=== PATIENT | female | born 1960 | race Caucasian/White ===

== ENCOUNTER → 2024-03-08 | Outpatient (CLI) | payer OTHER, SELFPAY ==
--- NOTE | 2024-03-08 09:30 | XR_ITS ---
Examination: Screening digital mammography, bilateral Computer aided detection 3-D breast Tomosynthesis, bilateral Date and time of exam: March 08, 2024 0931 hours Compared to mammograms dating to October 05, 2013 Indication: Screening Technique: Nonmagnified MLO, CC views of the breasts to been obtained, reconstructed from 3-D Tomosynthesis images. R2 computer aided detection program utilized for evaluation of suspicious masses and/or abnormal calcifications. 3-D Tomosynthesis images obtained. Findings: The breasts are heterogeneously dense, which may obscure small masses Benign calcifications. No interval suspicious masses Impression: BI-RADS category II: Benign Findings. Recommend 1 year follow-up mammogram.
== END | disposition home or self-care (01) ==
LOC: CDIM 09:10
PROVIDERS: PCP Family Medicine; Referring Provider Specialist; Visit Provider Specialist
DX: Z12.31 Encounter for screening mammogram for malignant neoplasm of breast (principal); R92.323 Mammographic fibroglandular density, bilateral breasts; R92.1 Mammographic calcification found on diagnostic imaging of breast
CPT/HCPCS: 77063; 77067

== ENCOUNTER 2024-04-17 16:08 | Emergency (ER) | payer OTHER, SELFPAY ==
[2024-04-17 16:10] VITALS: BMI 20.2
[2024-04-17 16:31] VITALS: BP 170/95; PULSE 73; RESP 18; TEMP 36.9; O2SAT 98
--- NOTE | 2024-04-17 16:37 | XR_ITS ---
Examination: Cervical spine 3 views Technique one AP lateral coned AP odontoid cervical spine 3 views Exam date and time: April 17, 2024 1558 hours INDICATIONS: Neck pain this week. FINDINGS: Straightening normal cervical lordosis No cervical fracture Minimal disc narrowing C6-C7 with posterior osteophyte formation Intact odontoid IMPRESSION: Early degenerative disc disease C6-C7
--- NOTE | 2024-04-17 16:37 | PD.EDRME ---
Rapid Medical Screening Exam RME Arrival date/time: 04/17/24 16:08 63-year-old female reports with complaints of occipital head pain that began suddenly last evening Chief Complaint: Neuro Symptoms/Deficit Time Seen by Provider: 04/17/24 16:30 Vital signs: Vital Signs Temperature 98.5 F 04/17/24 16:31 Pulse Rate 73 04/17/24 16:31 Respiratory Rate 18 04/17/24 16:31 Blood Pressure 170/95 H 04/17/24 16:31 Pulse Oximetry (%) 98 04/17/24 16:31 Oxygen Delivery Method Room Air 04/17/24 16:31
[2024-04-17 16:55] LABS: Basophils # (Auto) 0.1 Thou/mm3 (0.0-0.2); Basophils % (Auto) 1 % (0-2.5); Eosinophils # (Auto) 0.1 Thou/mm3 (0.0-0.5); Eosinophils % (Auto) 1 % (0-10); Hematocrit 40.3 % (36.0-46.0); Hemoglobin 13.5 g/dL (12.0-16.0); Immature Granulocytes % (Auto) 0 % (0-0); Immature Granulocytes Auto 0.03 Thou/mm3 (0.00-0.00); Lymphocytes # (Auto) 1.9 Thou/mm3 (1.0-4.8); Lymphocytes % (Auto) 23 % (10-50); Mean Corpuscular HGB Conc 33.5 g/dl (31.0-37.0); Mean Corpuscular Hemoglobin 30.6 pg (25.0-35.0); Mean Corpuscular Volume 91 fL (80-100); Monocytes # (Auto) 0.7 Thou/mm3 (0.0-0.8); Monocytes % (Auto) 9 % (0-12); Neutrophils # (Auto) 5.5 Thou/mm3 (1.8-7.7); Neutrophils % (Auto) 67 % (37-80); Nucleated Red Blood Cell % 0 /100 WBC (0); Platelet Count 166 Thou/mm3 (140-440); RDW Standard Deviation 46.5 fL (36.4-46.3); Red Blood Count 4.41 Miln/mm3 (4.00-5.20); White Blood Count 8.2 Thou/mm3 (3.6-11.0)
[2024-04-17 17:25] LABS: Alanine Aminotransferase 9 U/L (10-49); Albumin, Serum 4.6 gm/dL (3.4-4.8); Albumin/Globulin Ratio 1.6 (1.2-2.2); Alkaline Phosphatase 50 U/L (46-116); Anion Gap 9 (7-16); Aspartate Amino Transferase 14 U/L (0-34); BUN/Creatinine Ratio 15 Ratio (12-20); Bilirubin,Total 0.5 mg/dL (0.3-1.2); Blood Urea Nitrogen 12 mg/dL (9-23); Calcium 9.5 mg/dL (8.3-10.6); Calcium (Corrected) 9.5 mg/dL (8.5-10.1); Carbon Dioxide 24.3 mMol/L (20.0-31.0); Chloride 106 mMol/L (98-107); Creatinine (Component) 0.8 mg/dL (0.6-1.3); Estimated Creatinine Clearance 50.4 mL/min (>60); Globulin 2.8 gm/dL (2.3-3.5); Glucose 98 mg/dL (74-106); Osmolality,Calculated 277 (275-295); Sodium 139 mMol/L (136-145); Total Protein 7.4 gm/dL (5.7-8.2); eGFR > 60 See Note
--- NOTE | 2024-04-17 18:00 | PC.NURSE ---
CALLED PT FROM [facility] AND OUTSIDE. NO ANSWER
--- NOTE | 2024-04-17 18:12 | PC.NURSE ---
CALLED FROM [facility]OB[facility] AND NO ANSWER
--- NOTE | 2024-04-17 18:32 | PC.NURSE ---
CALLED FROM [facility]OB[facility] AND NO ANSWER
== END 2024-04-17 18:13 | disposition left against medical advice (07) ==
PROVIDERS: Physician Assistant; Emergency Provider Emergency Medicine
DX: R51.9 Headache, unspecified (principal); M54.2 Cervicalgia; R94.31 Abnormal electrocardiogram [ECG] [EKG]
CPT/HCPCS: 36415; 72040; 80053; 83735; 85025; 93005; 99281

== ENCOUNTER → 2024-04-26 | Outpatient (CLI) | payer OTHER, SELFPAY ==
--- NOTE | 2024-04-26 10:09 | XR_ITS ---
Examination: CT brain head without contrast. 2-D sagittal coronal reconstructions Date and time of exam:April 26, 2024 1037 hours INDICATIONS: Headaches with altered mental status beginning one week ago CTDI: vol (mGy):44.4 DLP: (mGycm):842 Technique: Multiple CT axial sections of the brain have been obtained, 5 mm slice thickness. Contrast has not been administered. 2-D sagittal, coronal reconstructions have been obtained Low dose protocols were performed. One or more of the following dose reduction techniques were used; automated exposure control, adjustment of the mA and/or KV according to patient size, use of iterative reconstruction technique. Findings: No significant ventricular enlargement. Intra-axial or extra-axial hemorrhage density is not seen. No mass effect or midline shift Basal cisterns are not remarkable. Fourth ventricle is midline. Cranial vault intact. Impression: Negative for acute hemorrhage, mass effect or midline shift If symptoms persist, consider brain MRI follow-up
== END | disposition home or self-care (01) ==
LOC: CCTX 09:59
PROVIDERS: PCP Family Medicine; Referring Provider Student in an Organized Health Care Education/Training Program; Visit Provider Student in an Organized Health Care Education/Training Program
DX: R40.4 Transient alteration of awareness (principal); R51.9 Headache, unspecified
CPT/HCPCS: 70450

== ENCOUNTER → 2024-05-30 | Outpatient (CLI) | payer OTHER, SELFPAY ==
[2024-05-30 11:33] LABS: Basophils % (Auto) 1 % (0-2.5); Eosinophils # (Auto) 0.1 Thou/mm3 (0.0-0.5); Eosinophils % (Auto) 2 % (0-10); Hematocrit 38.4 % (36.0-46.0); Hemoglobin 12.9 g/dL (12.0-16.0); Immature Granulocytes % (Auto) 1 % (0-0); Immature Granulocytes Auto 0.03 Thou/mm3 (0.00-0.00); Lymphocytes # (Auto) 1.6 Thou/mm3 (1.0-4.8); Lymphocytes % (Auto) 28 % (10-50); Mean Corpuscular HGB Conc 33.6 g/dl (31.0-37.0); Mean Corpuscular Hemoglobin 30.6 pg (25.0-35.0); Mean Corpuscular Volume 91 fL (80-100); Monocytes # (Auto) 0.5 Thou/mm3 (0.0-0.8); Monocytes % (Auto) 9 % (0-12); Neutrophils # (Auto) 3.3 Thou/mm3 (1.8-7.7); Neutrophils % (Auto) 60 % (37-80); Nucleated Red Blood Cell % 0 /100 WBC (0); Platelet Count 222 Thou/mm3 (140-440); RDW Standard Deviation 45.2 fL (36.4-46.3); Red Blood Count 4.22 Miln/mm3 (4.00-5.20); White Blood Count 5.6 Thou/mm3 (3.6-11.0)
[2024-05-30 12:01] LABS: Alanine Aminotransferase 10 U/L (10-49); Albumin, Serum 4.3 gm/dL (3.4-4.8); Albumin/Globulin Ratio 1.7 (1.2-2.2); Alkaline Phosphatase 48 U/L (46-116); Anion Gap 6 (7-16); Aspartate Amino Transferase 17 U/L (0-34); BUN/Creatinine Ratio 16 Ratio (12-20); Bilirubin,Total 0.4 mg/dL (0.3-1.2); Blood Urea Nitrogen 13 mg/dL (9-23); Calcium 9.5 mg/dL (8.3-10.6); Calcium (Corrected) 9.5 mg/dL (8.5-10.1); Carbon Dioxide 27.3 mMol/L (20.0-31.0); Cardiac Risk Estimate 2.3 RATIO (3.7-5.6); Chloride 108 mMol/L (98-107); Cholesterol 199 mg/dL (132-200); Creatinine (Component) 0.8 mg/dL (0.6-1.3); Globulin 2.5 gm/dL (2.3-3.5); Glucose 88 mg/dL (74-106); HDL Cholesterol 85 mg/dL (40-60); LDL Cholesterol,Calculated 97 mg/dL (0-130); Osmolality,Calculated 280 (275-295); Potassium 4.2 mMol/L (3.4-5.1); Sodium 141 mMol/L (136-145); Total Protein 6.8 gm/dL (5.7-8.2); Triglycerides 87 mg/dL (30-150); eGFR > 60 See Note
== END | disposition home or self-care (01) ==
LOC: COPL 10:14
PROVIDERS: PCP Family Medicine; Referring Provider Family Medicine; Visit Provider Family Medicine
DX: M81.8 Other osteoporosis without current pathological fracture (principal)
CPT/HCPCS: 36415; 80053; 80061; 82306; 85025

== ENCOUNTER → 2024-11-03 | Outpatient (CLI) | payer OTHER, MEDICAID, SELFPAY ==
--- NOTE | 2024-11-03 08:25 | XR_ITS ---
Examination: Duplex scan of the lower extremity, unilateral left Date and time of exam: November 03, 2024 0850 hours INDICATIONS: Left leg swelling and pain beginning one week ago Technique: Duplex scan of the extremity veins using B-mode/grayscale imaging and Doppler spectral analysis and color flow Attention is directed to internal echogenicity, compression and augmentation involving these veins, color flow assessment, spectral analysis Findings: Major deep venous structures in the extremity demonstrate normal course and caliber. There is no evidence of deep vein thrombosis. Normal color flow and spectral analysis 2.8 cm left popliteal cyst Impression: Negative for DVT..
[2024-11-03 10:03] LABS: Basophils # (Auto) 0.0 Thou/mm3 (0.0-0.2); Basophils % (Auto) 1 % (0-2.5); Eosinophils # (Auto) 0.1 Thou/mm3 (0.0-0.5); Eosinophils % (Auto) 2 % (0-10); Hematocrit 41.8 % (36.0-46.0); Hemoglobin 14.0 g/dL (12.0-16.0); Immature Granulocytes Auto 0.02 Thou/mm3 (0.00-0.00); Lymphocytes # (Auto) 1.6 Thou/mm3 (1.0-4.8); Lymphocytes % (Auto) 22 % (10-50); Mean Corpuscular HGB Conc 33.5 g/dl (31.0-37.0); Mean Corpuscular Hemoglobin 31.1 pg (25.0-35.0); Mean Corpuscular Volume 93 fL (80-100); Monocytes # (Auto) 0.5 Thou/mm3 (0.0-0.8); Monocytes % (Auto) 7 % (0-12); Neutrophils # (Auto) 5.1 Thou/mm3 (1.8-7.7); Neutrophils % (Auto) 68 % (37-80); Nucleated Red Blood Cell # 0.00 Thou/mm3 (0.00-0.00); Nucleated Red Blood Cell % 0 /100 WBC (0); Platelet Count 197 Thou/mm3 (140-440); RDW Standard Deviation 46.2 fL (36.4-46.3); Red Blood Count 4.50 Miln/mm3 (4.00-5.20); White Blood Count 7.4 Thou/mm3 (3.6-11.0)
[2024-11-03 10:14] LABS: Glucose Estimated Average 117 mg/dL (80-131); Hemoglobin A1C 5.7 % Hgb (4.8-6.0)
[2024-11-03 10:21] LABS: T4 (Thyroxine) 5.6 mcg/dL (4.5-10.9)
[2024-11-03 10:25] LABS: B-Type Natriuretic Peptide 66 pg/mL (0-100)
[2024-11-03 10:30] LABS: Alanine Aminotransferase 9 U/L (10-49); Albumin, Serum 4.6 gm/dL (3.4-4.8); Albumin/Globulin Ratio 2.0 (1.2-2.2); Alkaline Phosphatase 52 U/L (46-116); Anion Gap 8 (7-16); Aspartate Amino Transferase 20 U/L (0-34); BUN/Creatinine Ratio 16 Ratio (12-20); Bilirubin,Total 0.4 mg/dL (0.3-1.2); Blood Urea Nitrogen 14 mg/dL (9-23); Calcium 9.8 mg/dL (8.3-10.6); Calcium (Corrected) 9.8 mg/dL (8.5-10.1); Carbon Dioxide 26.6 mMol/L (20.0-31.0); Cardiac Risk Estimate 2.4 RATIO (3.7-5.6); Chloride 108 mMol/L (98-107); Cholesterol 221 mg/dL (132-200); Creatinine (Component) 0.9 mg/dL (0.6-1.3); Globulin 2.3 gm/dL (2.3-3.5); Glucose 110 mg/dL (74-106); HDL Cholesterol 94 mg/dL (40-60); LDL Cholesterol,Calculated 113 mg/dL (0-130); Osmolality,Calculated 286 (275-295); Potassium 5.5 mMol/L (3.4-5.1); Sodium 143 mMol/L (136-145); Thyroid Stimulating Hormone 2.96 uIU/mL (0.55-4.78); Total Protein 6.9 gm/dL (5.7-8.2); Triglycerides 70 mg/dL (30-150); eGFR > 60 See Note
== END | disposition home or self-care (01) ==
LOC: CDIM 08:19 → COPL 09:04
PROVIDERS: Student in an Organized Health Care Education/Training Program; PCP Family Medicine; Referring Provider Nurse Practitioner Family; Visit Provider Radiology Diagnostic Radiology
DX: R22.42 Localized swelling, mass and lump, left lower limb (principal); R53.83 Other fatigue; Z82.49 Family history of ischemic heart disease and other diseases of the circulatory system; Z86.39 Personal history of other endocrine, nutritional and metabolic disease
CPT/HCPCS: 36415; 80053; 80061; 83036; 83880; 84436; 84443; 85025; 93971

== ENCOUNTER → 2024-11-09 | Outpatient (CLI) | payer OTHER, MEDICAID, SELFPAY ==
[2024-11-09 10:49] LABS: Potassium 3.8 mMol/L (3.4-5.1)
== END | disposition home or self-care (01) ==
LOC: COPL 09:34
PROVIDERS: PCP Family Medicine; Referring Provider Student in an Organized Health Care Education/Training Program; Visit Provider Student in an Organized Health Care Education/Training Program
DX: E87.5 Hyperkalemia (principal)
CPT/HCPCS: 36415; 84132

== ENCOUNTER → 2024-12-06 | Outpatient (CLI) | payer OTHER, MEDICAID, SELFPAY ==
--- NOTE | 2024-12-06 08:40 | XR_ITS ---
Examination: Right knee 2 views Technique one AP lateral right knee 2 views Date and time: December 06, 2024 0840 hours INDICATIONS: Right knee pain 20 years FINDINGS: Advanced tricompartment osteoarthritis. No fracture or dislocation. Moderate osteopenia IMPRESSION: Advanced tricompartment osteoarthritis.
== END | disposition home or self-care (01) ==
PROVIDERS: PCP Family Medicine; Referring Provider Registered Nurse; Visit Provider Registered Nurse
DX: M17.11 Unilateral primary osteoarthritis, right knee (principal)
CPT/HCPCS: 73560

== ENCOUNTER 2025-02-11 17:01 | Inpatient (IN) | payer OTHER, MEDICAID, MEDICARE, SELFPAY ==
[2025-02-11 18:03] VITALS: BP 160/101; BP 163/97; PULSE 99; RESP 18; TEMP 36.3; O2SAT 96; BMI 18.7
--- NOTE | 2025-02-11 18:19 | XR_ITS ---
Examination: CT brain head without contrast. 2-D sagittal coronal reconstructions Date and time of exam: February 11, 2025, 2038 hours INDICATION: Patient fell today with injury to the head, headache CTDI: vol (mGy): 45.5 DLP: (mGycm): 885 Technique: Multiple CT axial sections of the brain have been obtained, 5 mm slice thickness. Contrast has not been administered. 2-D sagittal, coronal reconstructions have been obtained Low dose protocols were performed. One or more of the following dose reduction techniques were used; automated exposure control, adjustment of the mA and/or KV according to patient size, use of iterative reconstruction technique. Findings: No significant ventricular enlargement. Intra-axial or extra-axial hemorrhage density is not seen. No mass effect or midline shift Basal cisterns are not remarkable. Fourth ventricle is midline. Cranial vault intact. Impression: Negative for acute hemorrhage, mass effect or midline shift
--- NOTE | 2025-02-11 18:19 | XR_ITS ---
EXAMINATION: AP chest single view TECHNIQUE: AP upright portable chest single view Date and time: February 11, 2025, 1823 hours, comparison April 16, 2015 INDICATIONS: Coughing 3 days. FINDINGS: Normal heart size No lobar pneumonia Stable moderate thoracic dextroscoliosis IMPRESSION: No lobar pneumonia
--- NOTE | 2025-02-11 18:20 | XR_ITS ---
Examination: CT abdomen with intravenous contrast CT pelvis with intravenous contrast 2-D coronal reconstructions 2-D sagittal reconstructions Date and time of exam: February 11, 2025, 2039 hours INDICATIONS: Abdominal pain, vomiting blood today. CTDI: vol (mGy) 7.79 DLP: (mGycm) 366 Technique: Multiple axial sections of the abdomen and pelvis have been obtained. 64 slice high-resolution scanner used. 3 mm axial sections have been obtained, post intravenous injection 60 cc [id number] 2-D sagittal, coronal reconstructions obtained. Low dose protocols were performed. One or more of the following dose reduction techniques were used; automated exposure control, adjustment of the mA and/or KV according to patient size, use of iterative reconstruction technique. Findings: No focal liver or splenic lesions Gastric mucosa appears thickened No free air No gallstones No pancreatic mass or peripancreatic edema Aorta normal size no renal or ureteral calculi Normal appendix No diverticulitis Atrophic anteverted uterus with uterine areas of calcified fibroid degeneration, small masses, the largest 20 mm Bladder intact Osseous structures are demineralized IMPRESSION: Gastritis pattern
[2025-02-11 18:34] LABS: Basophils # (Auto) 0.0 Thou/mm3 (0.0-0.2); Basophils % (Auto) 0 % (0-2.5); Eosinophils # (Auto) 0.0 Thou/mm3 (0.0-0.5); Eosinophils % (Auto) 0 % (0-10); Hematocrit 42.4 % (36.0-46.0); Hemoglobin 14.4 g/dL (12.0-16.0); Immature Granulocytes Auto 0.05 Thou/mm3 (0.00-0.00); Lymphocytes # (Auto) 0.8 Thou/mm3 (1.0-4.8); Lymphocytes % (Auto) 7 % (10-50); Mean Corpuscular HGB Conc 34.0 g/dl (31.0-37.0); Mean Corpuscular Hemoglobin 30.2 pg (25.0-35.0); Mean Corpuscular Volume 89 fL (80-100); Monocytes # (Auto) 0.5 Thou/mm3 (0.0-0.8); Monocytes % (Auto) 5 % (0-12); Neutrophils # (Auto) 9.6 Thou/mm3 (1.8-7.7); Neutrophils % (Auto) 88 % (37-80); Nucleated Red Blood Cell # 0.00 Thou/mm3 (0.00-0.00); Nucleated Red Blood Cell % 0 /100 WBC (0); Platelet Count 216 Thou/mm3 (140-440); RDW Standard Deviation 43.8 fL (36.4-46.3); Red Blood Count 4.77 Miln/mm3 (4.00-5.20); White Blood Count 10.9 Thou/mm3 (3.6-11.0)
--- NOTE | 2025-02-11 18:38 | EDNOTE_ITS ---
ED GI Bleed RME/HPI General Chief complaint: GI Bleed Stated complaint: VOMITTING BLOOD TODAY Arrival date/time: 02/11/25 17:01 RME / HPI RME / HPI Narrative: CC: throwing up blood Patient is a 64 year old female who has a limited past medical history of hemorroids who presented to the emergency room with a chief complain of hematemesis for several days and abdominal pain at epigastric region. Patient is overall a poor historian who was unable to quantify or number of episodes. Patient denied alcohol use or history of varies. Patient denied history of cirrhosis. Stated this is the firs time this has happened. Patient denied blood in stool. Patient had a ground level mechanical fall as she was in her garden when she slipped on mud and hit her occipital head. Denied loss of consciousness. Left black eye that patient stated was related to the fall but unclear how she had facial damage. Patient denied chest pain. Denied Shortness of breath. Smokes THC. * at bedside stated she was at the [facility] previous 02/03/2025, which had a food poison outbreak. Patient started complaining of abdominal pain during this week and today began to have several episodes of hematemesis & Nose bleed. Ground level fall happened today as well, after patient slipped on mud. Related Data Allergies Allergy/AdvReac Type Severity Reaction Status Date / Time No Known Allergies Allergy Verified 02/11/25 17:04 Review of Systems Review of Systems Narrative Review of Systems: General appearance: NO weight change, NO fatigue, NO weakness, NO fever, NO chills, NO night sweats, No cough, mechanical fall Skin: NO rash, NO itching, NO sores, NO moles HEENT: NO Trauma, NO nausea, NO vomiting, NO visual changes, NO blurry vision, NO double vision, NO tinnitus, NO vertigo, NO ear discharge, NO rhinorrhea, NO stuffiness, NO sneezing, NO allergy, NO epistaxis. NO Hoarseness, NO sore throat, NO swollen neck. Cardiac: NO Palpitations, NO dyspnea on exertion, NO orthopnea, NO paroxysmal nocturnal dyspnea, NO edema Respiratory: NO Shortness of Breath, NO Wheezing, NO Cough, NO Sputum, NO hemoptysis GI:NO appetite, NO nausea, Yes vomiting, NO dysphagia, NO changes in bowel frequency, NO stool color, NO diarrhea, NO constipation, Yes hemetemesis, hx of hemorrhoids, NO melena, NO hematechezia, Yes abdominal pain, NO jaundice Renal: NO frequency, NO hesitancy, NO urgency, NO hematuria, NO nocturia, NO incontinence MSK: NO muscle weakness, NO gout, NO arthritis, NO muscle stiffness Neuro: NO headaches, NO tremors, NO weakness, NO paralysis, NO seizures, NO loss of consciousness, NO numbness. Hem: NO anemia, NO easy bruising/bleeding, NO petechiae, NO purpura Endo: NO heat/cold intolerance, NO excessive sweating, NO polyuria, NO polydipsia, NO polyphagia, NO thyroid problems, NO diabetes Pysch: NO mood, NO anxiety, NO depression ED Exam Narrative Physical exam: General Appearance: Alert & Oriented X3, thin female who is lying in bed in mild distress-in position HEENT: Skull symmetrical and atraumatic. Conjunctivae pale pink and moist. Pupils equal, round, reactive to light and accommodation (PERRL). Oral cavity noted dry blood around mouth. No lesions noted inside oral cavity. oral mucosa appears dry. Nose bleed noted. Cardio: Normal Rate and Rhythm with S1 and S2 heart sounds. No murmurs or extra heart sounds auscultated. No bruits on carotid auscultation. No peripheral edema or cyanosis. Lungs: Symmetric with good expansion. Chest and back non-tender. Breath sounds vesicular without crackles, wheezing or rhonchi Abdomen: Diffuse tenderness, Non-distended, hyperactive Bowel Sounds, negative william Neuro: Alert, cooperative, oriented to person, place, and time. Speech clear. CN grossly intact. Upper motor strength 5/5 and Lower motor strength 5/5. Sensation intact. Course Quality Measures none Orders Category Date Time Status Blood Sugar Check-Sandostatin Q1HR Care 02/11/25 20:[address] Screening NOW Care 02/11/25 18:20 Active Sonar Subsystem Equipment Operator Q4H START 00 Care 02/11/25 18:15 Active Sonar Subsystem Equipment Operator Q4H START 00 Care 02/11/25 18:15 Active Continuous Pulse Oximetry NOW Care 02/11/25 18:15 Completed EKG (ED ONLY) *Do not use* NOW Care 02/11/25 19:16 Completed EKG (ED ONLY) *Do not use* NOW Care 02/11/25 21:00 Completed Insert IV STAT Care 02/11/25 18:16 Active NPO NOW Care 02/11/25 18:15 Active Occult Blood,Stool (Nursing) NEEDED Care 02/11/25 18:15 Active Orthostatic Vitals NOW Care 02/11/25 18:15 Active Vital Signs, Non-Routine [id number] Care 02/11/25 18:30 Ordered Consult to Cardiology Stat Cons 02/11/25 22:[address] abdomen pelvis w con Stat Exams 02/11/25 18:[address] head/brain wo con Stat Exams 02/11/25 18:19 Completed EKG (ED Only) Stat Exams 02/11/25 19:16 Draft EKG (ED Only) Stat Exams 02/11/25 21:00 Draft XR chest 1V portable Stat Exams 02/11/25 18:19 Completed Alcohol, Blood Medical Stat Lab 02/11/25 18:28 Completed Ammonia Stat Lab 02/11/25 18:28 Completed Amylase Stat Lab 02/11/25 18:28 Completed Arterial Blood Gas Stat Lab 02/11/25 21:16 Completed CBC Stat Lab 02/11/25 18:28 Completed Comprehensive Metabolic Panel Stat Lab 02/11/25 18:28 Completed Drug Screen,Urine Stat Lab 02/11/25 21:54 Completed Lactic Acid [Lactate (Lactic Acid)] Stat Lab 02/11/25 18:50 Completed Lipase Stat Lab 02/11/25 18:28 Completed Magnesium Stat Lab 02/11/25 18:28 Completed Partial Thromboplastin Time Stat Lab 02/11/25 18:28 Completed Prothrombin Time with INR Stat Lab 02/11/25 18:28 Completed Troponin I Routine Lab 02/11/25 20:56 Completed Troponin I Stat Lab 02/11/25 18:28 Completed Type and Screen Stat Lab 02/11/25 18:50 Completed Urinalysis, C/S if Indicated Stat Lab 02/11/25 21:54 Completed Esomeprazole Inj [Nexium Inj] Med 02/11/25 18:15 Discontinued 80 mg IVP X1 ONE Metoclopramide Inj [Reglan Inj] Med 02/11/25 18:15 Discontinued 10 mg IVP X1 ONE Ondansetron Inj [Zofran Inj] Med 02/11/25 18:15 Active 4 mg IVP Q1H PRN Pantoprazole Inj [Protonix Inj] Med 02/11/25 18:35 Discontinued 80 mg IVP X1 ONE Sodium Chloride 0.9% 1000 ml [Ns] 1,000 ml Med 02/11/25 18:15 Discontinued IV 999 mls/hr Sodium Chloride 0.9% [Ns] 100 ml Med 02/11/25 18:15 Active Octreotide Acet Inj [SandoSTATIN Inj] 1,000 mcg IV 50 mcg/hr Vital Signs Vital signs: Vital Signs Temperature 97.4 F 02/11/25 18:03 Pulse Rate 99 02/11/25 18:03 Respiratory Rate 18 02/11/25 18:03 Blood Pressure 160/101 H 02/11/25 18:03 Pulse Oximetry (%) 96 02/11/25 18:03 Oxygen Delivery Method Room Air 02/11/25 18:03 GI Bleed Patient data External records reviewed:: [facility] previous records Clinical information provided by:: patient and family Social determinants that could affect healthcare access:: none Patient has the following chronic illnesses:: Denied medical history How is presenting disease/condition affected by chronic disease/condition?: no chronic disease Evaluation data The following diagnostics were reviewed and interpreted by me:: lab results, radiology exam(s) and EKG tracing(s) Lab and/or radiology exams considered but not ordered:: none Interpretation Summary: Patient is a 64 year old female who has a limited past medical history of hemorroids who presented to the emergency room with a chief complain of hematemesis and abdominal pain. Abdominal/pelvis CT noted to show a gastroenteritis pattern with a gastric mucosa thickened, concern for infectious etiology given recent visit to [facility] that had known poison outbreak. No Leukocytosis noted. CMP NO potassium abnormalities or Sodium abnormalities. No Lactic Acid. Troponemia noted 0.987 and repeat 1.296. EKG V1 and V2 inversion. UA negative. #Upper GI bleed, low suspicion #NSTEMI, giving increasing Tropnemia #Mechanical Fall/Ground level fall Medications / Prescriptions Medications or Prescriptions considered but not ordered:: none Medication administrations:: Medication Administration History Octreotide Acetate 1,000 mcg/ (Sodium Chloride) 102 mls @ 5.1 mls/hr IV .Q20H ONE; Protocol Stop: 02/12/25 14:14 Last Admin: 02/11/25 20:10 Dose: 50 mcg/hr, 5.1 mls/hr Documented By: CB Ondansetron HCl (Ondansetron Inj 2 Mg/Ml Inj 2 Ml) 4 mg IVP Q1H PRN PRN Reason: PERSISTENT NAUSEA OR VOMITING Last Admin: 02/11/25 20:10 Dose: 4 mg Documented By: ANTONIO Discontinued Medications Esomeprazole Magnesium (Esomeprazole Inj 40 Mg Vial) 80 mg IVP X1 ONE Stop: 02/11/25 18:16 Last Admin: 02/11/25 19:55 Dose: Not Given Documented By: PHILLIP Non-Admin Reason: Cancelled by Provider Sodium Chloride (Ns) 1,000 mls @ 999 mls/hr IV .Q1H1M ONE Stop: 02/11/25 19:15 Last Infusion: 02/11/25 21:21 Dose: Infused Documented By: Admin: 02/11/25 20:11 Dose: 999 mls/hr Documented By: ANTONIO Metoclopramide HCl (Metoclopramide Inj 5 Mg/Ml Vial 2 Ml) 10 mg IVP X1 ONE Stop: 02/11/25 18:16 Last Admin: 02/11/25 20:10 Dose: 10 mg Documented By: ANTONIO Pantoprazole Sodium (Pantoprazole Inj 40 Mg Vial) 80 mg IVP X1 ONE Stop: 02/11/25 18:36 Last Admin: 02/11/25 20:09 Dose: 80 mg Documented By: ANTONIO same as above Consultations Consultation(s) initiated? (list below): Yes Consultation #1 (Physician, Specialty, Details): Dr. Smith Time: 22:11 Diagnosis GI bleed differential diagnosis: infectious diarrhea, esophageal varices, Yoko-Robison syndrome and Upper gastrointestinal hemorrhage Most likely diagnosis given after review of the tests above:: Patient is a 64 year old female who has a limited past medical history of hemorroids who presented to the emergency room with a chief complain of hemate mesis and abdominal pain. Abdominal/pelvis CT noted to show a gastroenteritis pattern with a gastric mucosa thickened, concern for infectious etiology given recent visit to [facility] that had known poison outbreak. No Leukocytosis noted. CMP NO potassium abnormalities or Sodium abnormalities. No Lactic Acid. Troponemia noted 0.987 and repeat 1.296. EKG V1 and V2 inversion. UA negative. Cardio recommendations: hold off heparin, repeat EKG, Repeat Troponin, and consider Aspirin-Current GI bleed #NSTEMI, giving increasing Tropnemia #Upper GI bleed, low suspicion #Mechanical Fall/Ground level fall Admission Indicated Admission indicated?: not indicated Explain why admission is indicated or not indicated:: Concern for Tropenemia/NSTEMI Admission Request Was there a request for admission?: Yes Admission Attestation Admission request attestation: Discussed case with Dr. Bonds from Hospitalist service regarding admission. Discussed patients ED course, exam findings, labs, and radiology results. The Hospitalist agrees to accept the patient for admission. Disposition Plan Disposition Plan: Admit Discharge Plan Plan Patient Disposition: Admit Acute Care w/in Hospital Prescriptions/Referrals Referrals: Jed Ham [Primary Care Provider] - In 1 week Problem List Clinical Impression: Elevated troponin Patient/Caregiver Discharge Instructions Print Language: Spanish Stand Alone Forms: [facility]ylah Award Info., Patient Portal Info Letter
[2025-02-11 18:53] LABS: INR 1.0 (0.9-1.3); Partial Thromboplastin Time 25.6 Seconds (22.0-36.0); Prothrombin Time 10.5 Seconds (9.0-12.2)
[2025-02-11 19:04] LABS: Lactate (Lactic Acid) 1.2 mMol/L (0.4-2.0)
[2025-02-11 19:08] LABS: Ammonia < 10 uMol/L (11-32)
[2025-02-11 19:09] LABS: Alanine Aminotransferase 15 U/L (10-49); Albumin, Serum 4.6 gm/dL (3.4-4.8); Albumin/Globulin Ratio 1.8 (1.2-2.2); Alcohol, Blood Medical < 3.0 mg/dL (0-10.0); Alkaline Phosphatase 57 U/L (46-116); Amylase 81 U/L (30-118); Anion Gap 12 (7-16); Aspartate Amino Transferase 28 U/L (0-34); BUN/Creatinine Ratio 9 Ratio (12-20); Bilirubin,Total 0.5 mg/dL (0.3-1.2); Blood Urea Nitrogen 8 mg/dL (9-23); Calcium 9.8 mg/dL (8.3-10.6); Calcium (Corrected) 9.8 mg/dL (8.5-10.1); Carbon Dioxide 23.0 mMol/L (20.0-31.0); Chloride 108 mMol/L (98-107); Creatinine (Component) 0.9 mg/dL (0.6-1.3); Estimated Creatinine Clearance 42.3 mL/min (>60); Globulin 2.6 gm/dL (2.3-3.5); Glucose 127 mg/dL (74-106); Lipase 29 U/L (12-53); Magnesium 2.0 mg/dL (1.6-2.6); Osmolality,Calculated 285 (275-295); Potassium 4.1 mMol/L (3.4-5.1); Sodium 143 mMol/L (136-145); Total Protein 7.2 gm/dL (5.7-8.2); eGFR > 60 See Note
[2025-02-11 19:13] LABS: Troponin I 0.987 ng/mL (0.0-0.045)
--- NOTE | 2025-02-11 19:16 | EKG_ITS ---
[facility] Test Date: 2025-02-11 Pat Name: CHANTE STUBBS Department: Room: - Gender: Female Pnp: : 1960 Requested By: Susy Diop Order Number: [id number] Reading MD: Susy Diop Measurements Intervals [place] Rate: 73 P: -19 ID: [id number] QRS: -35 QRSD: 82 T: 5 QT: 407 QTc: 451 Interpretive Statements SINUS RHYTHM POSSIBLE LEFT ATRIAL ENLARGEMENT [-0.1mV P-WAVE IN V1/V2] INDETERMINATE AXIS POSSIBLE RIGHT VENTRICULAR CONDUCTION DELAY [RSR (QR) IN V1/V2] PROBABLE INFERIOR MYOCARDIAL INFARCTION , PROBABLY OLD [35 ms Q WAVE IN II/aVF] No previous ECG available for comparison /store/[email or web address]/[id number].pdf
[2025-02-11 20:03] VITALS: BP 133/81; BP 150/90; BP 154/87; BP 167/93; PULSE 76; PULSE 80; PULSE 83; PULSE 84; PULSE 85; RESP 18; TEMP 37.1; O2SAT 99
[2025-02-11 20:08] VITALS: BP 133/81; PULSE 96; RESP 17; TEMP 37.8; O2SAT 98
[2025-02-11] MEDS: METOCLOPRAMIDE INJ 5 MG/ML VIAL 2 ML 10 MG IVP (20:10)
[2025-02-11] MEDS: OCTREOTIDE ACET INJ 1,000 MCG in SODIUM CHLORIDE 0.9% 100 ML 5.1 MCG IV (20:10)
[2025-02-11] MEDS: ONDANSETRON INJ 2 MG/ML INJ 2 ML 4 MG IVP (20:10)
[2025-02-11] MEDS: SODIUM CHLORIDE 0.9% 1000 ML 1,000 ML 999 ML IV (20:11)
--- NOTE | 2025-02-11 21:00 | EKG_ITS ---
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
[2025-02-11 21:25] LABS: Base Excess -5 (-3-3); HCO3 19 mEq/L (20-26); Inspired Oxygen, FIO2 21 %; O2 Saturation 97 % (91-98); PCO2 30 mmHg (32.0-48.0); PO2 84 mmHg (83-108); pH, Arterial 7.40 (7.35-7.45)
[2025-02-11 21:27] LABS: Allen Test Performed/OK; Puncture Site Right Radial
[2025-02-11 21:29] LABS: Troponin I 1.296 ng/mL (0.0-0.045)
--- NOTE | 2025-02-11 21:46 | PC.NURSE ---
UPON ARRIVAL TO UNIT PT HAD BRUISING BELOW BOTH EYES, PT STATES IT HAD TO COME FROM A FALL FROM 0630 THIS MORNING AT HOME. PT SAYS SHE SLIPPED IN MUD AND FELL, DID NOT LOSE CONSCIOUSNESS
[2025-02-11 22:00] LABS: Collection Type, Urine Clean Catch
[2025-02-11 22:07] LABS: Bilirubin,Urine Negative (Negative); Blood,Urine Trace (Negative); Clarity,Urine Clear (Clear/Hazy); Color,Urine Lt-Yellow (Lt Yel-Yel); Culture Indicated,Urine Not Indicated; Glucose, Urine Negative (Negative); Ketones,Urine 1+ (Negative); Leukocyte Esterase,Urine Negative (Negative); Nitrite,Urine Negative (Negative); PH,Urine 6.0 (5.0-7.0); Protein,Urine 1+ (Neg - Trace); RBC,Urine 4 /hpf (0-3); Squamous Epithelial Cell,Urine 1 /hpf (0-5); Urobilinogen,Urine Negative mg/dL (0.0-1.0); WBC,Urine 1 /hpf (0-5)
[2025-02-11 22:13] LABS: Amphetamine/Methamp Scrn,U Negative (Negative); Barbiturate Screen,Urine Negative (Negative); Benzodiazepines Screen,Urine Negative (Negative); Benzoylecgonine Screen, Ur Negative (Negative); Fentanyl Screen,Urine Negative (Negative); Opiate Screen,Urine Negative (Negative); Specific Gravity,Urine > 1.035 (1.001-1.035); THC Screen,Urine Positive (Negative)
[2025-02-11 22:21] VITALS: BP 112/73; PULSE 73; RESP 20; TEMP 37.2; O2SAT 99
[2025-02-11 23:14] VITALS: RESP 98
--- NOTE | 2025-02-11 23:23 | PD.RESHP ---
Documentation for date of: 02/11/25 [facility] History of Present Illness History of present illness: 64-year-old female with a history of hemorrhoids who presents after a ground-level fall while gardening, where she slipped on mud, fell on her bottom, and subsequently struck the back of her head. She denies loss of consciousness but has developed a right black eye that gradually appeared throughout the day. Shortly after the fall, she experienced a bloody nose, followed by multiple episodes of hematemesis throughout the day. She is unable to quantify the amount of blood. This is her first episode of vomiting blood. The patient reports a history of stomach flu that began two days ago after attending a function in [place], but she denies any other gastrointestinal symptoms such as nausea, vomiting (prior to the hematemesis), or diarrhea. She denies a history of alcohol use, varices, or cirrhosis, and denies blood in the stool. She also denies chest pain, shortness of breath, or other concerning symptoms. ED course: Initial vitals include T 97.4, BP 160/100, RR 18, O2 sat 96% on room air. CBC unremarkable and hemoglobin 14.4. Head CT negative for hemorrhage, mass effect, midline shift. Chest x-ray unremarkable. CT Abdo pelvis shows gastritis pattern. EKGs showed sinus rhythm with no ST changes, QTc 426. Coag panel normal. In ED patient received pantoprazole 80 mg, octreotide drip, Zofran, metoclopramide 10 mg, 1 L NaCl. Past medical history: As stated above. Allergies: NKDA Family history: Noncontributory. Social history: No alcohol use, no smoking, smokes marijuana regularly. Patient admitted for NSTEMI type II and potential hematemesis. Review of Systems Review of Systems Narrative Review of Systems: All systems reviewed negative unless stated otherwise above. Exam Vital Signs Temp Pulse Resp BP Pulse Ox O2 Del Method 99 F 73 20 112/73 99 Room Air 02/11/25 22:21 02/11/25 22:21 02/11/25 22:21 02/11/25 22:21 02/11/25 22:21 02/11/25 22:21 Narrative Exam General: AOx3, no acute distress, able to speak full sentences, [place] speaking HEENT: NC/AT, right black eye noted, which developed over the course of the day, mucous membranes dry, bilateral sclera anicteric Cardiovascular: regular rate and rhythm, S1/S2 present, no murmurs appreciated Pulmonary: clear to auscultation bilaterally, no rales/rhonchi/wheezes Abdominal: soft, non-tender, non-distended, no rebound/guarding, normal bowel sounds present Musculoskeletal: normal ROM, no peripheral edema Skin: warm and dry, intact, no rashes, Neuro: CN II-XII intact, no focal deficits Results: Labs 02/12/25 16:59 02/12/25 02:51 Labs: Short CBC 02/11/25 Range/Units 18:28 WBC 10.9 (3.6-11.0) Thou/mm3 Hgb 14.4 (12.0-16.0) g/dL Hct 42.4 (36.0-46.0) % Plt Count 216 (140-440) Thou/mm3 BMP 02/11/25 18:28 Sodium 143 Potassium 4.1 Chloride 108 H Carbon Dioxide 23.0 BUN 8 L Creatinine 0.9 Glucose 127 H Calcium 9.8 Cardiac Enzymes 02/11/25 02/11/25 Range/Units 18:28 20:56 Troponin I 0.987 H* 1.296 H* D (0.0-0.045) ng/mL Liver Function 02/11/25 Range/Units 18:28 Total Bilirubin 0.5 (0.3-1.2) mg/dL AST 28 (0-34) U/L ALT 15 (10-49) U/L Alkaline Phosphatase 57 (46-116) U/L Albumin 4.6 (3.4-4.8) gm/dL Urine 02/11/25 Range/Units 21:54 Urine Color Lt-Yellow (Lt Yel-Yel) Urine Clarity Clear (Clear/Hazy) Urine pH 6.0 (5.0-7.0) Ur Specific [place] > 1.035 H (1.001-1.035) Urine Protein 1+ A (Neg - Trace) Urine Glucose (UA) Negative (Negative) ABG Interpretation ABG results: 02/11/25 21:16 ABG pH 7.40 ABG pCO2 30 L ABG pO2 84 ABG HCO3 19 L ABG O2 Saturation 97 ABG Base Excess -5 L Quality Measures Quality Measures VTE prophylaxis Advance care planning discussed with:: patient Medications Home Medications and Allergies Home Medications ?Medication ?Instructions ?Recorded ?Confirmed ?Type No Known Home Medications 02/12/25 02/12/25 History Allergies Allergy/AdvReac Type Severity Reaction Status Date / Time No Known Allergies Allergy Verified 02/11/25 17:04 Visit Medications Lactated Ringer's (Lactated Ringers) 1,000 mls @ 75 mls/hr IV .[id number] VINEET Stop: 03/13/25 23:14 Morphine Sulfate (Morphine Sulf Inj 4 Mg/Ml Vial) 2 mg IVP X1 PRN PRN Reason: chest pain Stop: 02/16/25 23:18 Ondansetron HCl (Ondansetron Inj 2 Mg/Ml Inj 2 Ml) 4 mg IVP Q6H PRN; Protocol PRN Reason: NAUSEA OR VOMITING Stop: 03/13/25 23:13 Pantoprazole Sodium (Pantoprazole Inj 40 Mg Vial) 40 mg IVP QDAY VINEET Stop: 03/14/25 08:59 Sennosides (Senna Tablet) 1 tab PO QDAY PRN; Protocol PRN Reason: constipation Stop: 03/13/25 23:13 Discontinued Medications Esomeprazole Magnesium (Esomeprazole Inj 40 Mg Vial) 80 mg IVP X1 ONE Stop: 02/11/25 18:16 Last Admin: 02/11/25 19:55 Dose: Not Given Sodium Chloride (Ns) 1,000 mls @ 999 mls/hr IV .Q1H1M ONE Stop: 02/11/25 19:15 Last Infusion: 02/11/25 21:21 Dose: Infused Octreotide Acetate 1,000 mcg/ (Sodium Chloride) 102 mls @ 5.1 mls/hr IV .Q20H ONE; Protocol Stop: 02/12/25 14:14 Last Admin: 02/11/25 20:10 Dose: 50 mcg/hr, 5.1 mls/hr Metoclopramide HCl (Metoclopramide Inj 5 Mg/Ml Vial 2 Ml) 10 mg IVP X1 ONE Stop: 02/11/25 18:16 Last Admin: 02/11/25 20:10 Dose: 10 mg Ondansetron HCl (Ondansetron Inj 2 Mg/Ml Inj 2 Ml) 4 mg IVP Q1H PRN PRN Reason: PERSISTENT NAUSEA OR VOMITING Last Admin: 02/11/25 20:10 Dose: 4 mg Pantoprazole Sodium (Pantoprazole Inj 40 Mg Vial) 80 mg IVP X1 ONE Stop: 02/11/25 18:36 Last Admin: 02/11/25 20:09 Dose: 80 mg Assessment & Plan Plan 64-year-old female with a history of hemorrhoids who presents with a 1 day history hematemesis. Not complaining of any chest pain or any other cardiac symptoms, however the troponin was mildly elevated initially and on repeat. Patient admitted for NSTEMI type II and potential hematemesis. #NSTEMI No cardiac symptoms Initial Trop was 0.987 --> 1.296 -->1.308 (Plateaued) EKG showed sinus rhythm with no ST changes, QTc 426. No previous echocardiogram Plan ? Cardiology consulted, Dr. Jameson, to see in a.m. ? Trend trop q6h ? If the next troponin check not plateauing and increasing we will start the patient on heparin ? Telemetry ? Keep magnesium and potassium above 2 and 4 respectively #Epistaxis #Hematemesis #GI bleed?? Imaging shows findings consistent with gastritis Bi-nostril crusted blood noted, no active bleed. Plan ? Patient started on Pantoprazole. ? Hemodynamically stable ? Hgb stable, monitor for drop ? If remains stable may follow up outpatient if hematmesis starts again #Ground-level fall #Facial trauma #R/Eva-orbital hematoma Ground-level fall while gardening, where she slipped on mud and fell on her bottom, subsequently striking the back of her head. She denies loss of consciousness but has a right black eye. Shortly after the fall, she developed a bloody nose, followed by multiple episodes of hematemesis throughout the day. Head CT negative for hemorrhage, mass effect, midline shift. Hemoglobin on admission 14.4 CT facial bones showed no maxillofacial fracture (prelim read) Plan ? Monitor for further hematemesis, if still present, consider GI consultation ? Monitor for drop in hemoglobin with a.m. lab Health Maintenance: Diet: CLD GI prophylaxis: Protonix 40 mg daily DVT prophylaxis: SCDs Antibiotics: None CODE STATUS: Full Disposition: Telemetry Case discussed with my attending Dr. Amador, and senior resident, Dr. Cammie Holloway MD PGY-1 Attending Provider Attestation/Addendum After examination of the patient and review of the clinical data I feel that this patient needs admission to the hospital for further treatment/evaluation. Plan of care discussed with patient and is in agreement. I Rossana Amador MD, attest that I was physically present for ha portions of evaluation, and examined patient, labs and imagings and plan of care were discussed with IM residents team, and I agree with the findings and plans documented above.
[2025-02-11] MEDS: RINGERS LACTATED 1000 ML 1,000 ML 75 ML IV (23:28)
--- NOTE | 2025-02-11 23:30 | XR_ITS ---
Examination: CT maxillofacial, without intravenous contrast. 2-D sagittal reconstructions. 3-D reconstructions. Date and time of exam: February 11, 2025, 11:55 p.m. INDICATIONS: Injury after falling to the face with bruising in the nose and eye facial pain CTDI: vol (mGy): 16 DLP: (mGycm): 317 Technique: Multiple axial images of maxillofacial region, 3.0 mm slice thickness. 2-D sagittal and coronal reconstructions. 3-D reconstructions. Low dose protocols were performed. One or more of the following dose reduction techniques were used; automated exposure control, adjustment of the mA and/or KV according to patient size, use of iterative reconstruction technique. Findings: Frontal bone frontal sinuses intact Orbital rims intact No nasal bone fracture No depression zygomatic arches Pterygoid plates maxilla and the mandible intact IMPRESSION: No acute facial fracture No opaque foreign body.
[2025-02-12] VITALS (7 sets, daily range): BP systolic 121–155; BP diastolic 77–99; PULSE 64–86; RESP 13–98; TEMP 36.5–36.9; O2SAT 97–98; BMI 18.7
--- NOTE | 2025-02-12 00:39 | PRELIM_ITS ---
CT maxillofacial without intravenous contrast (axial sections with sagittal and coronal reformats). February 11, 2025 2338 hours Clinical History: facial trauma Findings: There is no fracture. The maxillary sinus and orbital carvajal are intact. There is mild mucosal thickening in bilateral maxillary and ethmoid sinuses.No fluid levels are seen. No evidence of intraorbital hematoma, proptosis, globe injury or radiodense foreign body. The zygomatic arches and mandible are intact. The visualized soft tissues are unremarkable. There is periapical lucency involving the rightsecond maxillary incisortooth, suggestive of periodontal disease. Impression: No maxillofacial fracture. Other findings as described above. Report Electronically Signed By: Eros Mendoza 02/12/2025 12:39:14 AM [EST]
[2025-02-12 03:07] LABS: Basophils # (Auto) 0.0 Thou/mm3 (0.0-0.2); Basophils % (Auto) 0 % (0-2.5); Eosinophils # (Auto) 0.0 Thou/mm3 (0.0-0.5); Eosinophils % (Auto) 0 % (0-10); Hematocrit 38.4 % (36.0-46.0); Hemoglobin 12.9 g/dL (12.0-16.0); Immature Granulocytes Auto 0.02 Thou/mm3 (0.00-0.00); Lymphocytes # (Auto) 1.6 Thou/mm3 (1.0-4.8); Lymphocytes % (Auto) 18 % (10-50); Mean Corpuscular HGB Conc 33.6 g/dl (31.0-37.0); Mean Corpuscular Hemoglobin 30.0 pg (25.0-35.0); Mean Corpuscular Volume 89 fL (80-100); Monocytes # (Auto) 0.8 Thou/mm3 (0.0-0.8); Monocytes % (Auto) 8 % (0-12); Neutrophils # (Auto) 6.6 Thou/mm3 (1.8-7.7); Neutrophils % (Auto) 73 % (37-80); Nucleated Red Blood Cell # 0.00 Thou/mm3 (0.00-0.00); Nucleated Red Blood Cell % 0 /100 WBC (0); Platelet Count 173 Thou/mm3 (140-440); RDW Standard Deviation 44.1 fL (36.4-46.3); Red Blood Count 4.30 Miln/mm3 (4.00-5.20); White Blood Count 9.0 Thou/mm3 (3.6-11.0)
[2025-02-12 03:37] LABS: Alanine Aminotransferase 12 U/L (10-49); Albumin, Serum 4.0 gm/dL (3.4-4.8); Albumin/Globulin Ratio 2.4 (1.2-2.2); Alkaline Phosphatase 46 U/L (46-116); Anion Gap 10 (7-16); Aspartate Amino Transferase 28 U/L (0-34); BUN/Creatinine Ratio 11 Ratio (12-20); Bilirubin,Total 0.6 mg/dL (0.3-1.2); Blood Urea Nitrogen 9 mg/dL (9-23); Calcium 8.3 mg/dL (8.3-10.6); Calcium (Corrected) 8.3 mg/dL (8.5-10.1); Carbon Dioxide 21.9 mMol/L (20.0-31.0); Cardiac Risk Estimate 2.3 RATIO (3.7-5.6); Chloride 111 mMol/L (98-107); Cholesterol 171 mg/dL (132-200); Creatinine (Component) 0.8 mg/dL (0.6-1.3); Estimated Creatinine Clearance 47.6 mL/min (>60); Globulin 1.7 gm/dL (2.3-3.5); Glucose 148 mg/dL (74-106); HDL Cholesterol 74 mg/dL (40-60); LDL Cholesterol,Calculated 86 mg/dL (0-130); Magnesium 2.1 mg/dL (1.6-2.6); Osmolality,Calculated 286 (275-295); Phosphorous 4.2 mg/dL (2.4-5.1); Potassium 3.9 mMol/L (3.4-5.1); Sodium 143 mMol/L (136-145); Total Protein 5.7 gm/dL (5.7-8.2); Triglycerides 57 mg/dL (30-150); eGFR > 60 See Note
[2025-02-12 03:46] LABS: Troponin I 1.308 ng/mL (0.0-0.045)
--- NOTE | 2025-02-12 06:54 | ECHO_ITS ---
Patient Info Name: Margarita Carranza Age: 64 years : 1960 Gender: Female Ht: 152 cm Wt: 44 kg BSA: 1.35 m2 BP: 121 / 99 mmHg HR: 69 bpm Heart Rhythm: Sinus Rhythm Exam Date: 02/12/2025 8:49 AM Admit Date: 02/11/2025 Site: [facility] Patient Status: I Technical Quality: Fair Exam Type: CA echo doppler complete [employer]: Olga Lidia Nixon Ordering Physician: Jules Smith Study Info Indications NSTEMI - Elevated troponins - Primary Location: S2NX Left Ventricular Outflow Tract Name Value Normal LVOT 2D LVOT Diameter 1.9 cm LVOT Doppler LVOT Peak Velocity 76 cm/s LVOT Mean Gradient 1 mmHg LVOT VTI 15 cm LVOT VTI/AV VTI Ratio 0.8 LVOT Stroke Volume 43 ml Pulmonic Valve Name Value Normal PV Doppler PV Peak Velocity 86 cm/s PV Regurgitation Doppler HI Peak End Diastolic Velocity 191 cm/s Mitral Valve Name Value Normal MV Doppler MV Decel Hemphill 584 cm/s2 MV PHT 39 ms MV Area (PHT) 5.7 cm2 4.0-5.0 MV Diastolic Function MV E Peak Velocity 78 cm/s MV A Peak Velocity 50 cm/s MV E/A 1.5 MV Annular TDI MV Septal e' Velocity 7.3 cm/s MV E/e' (Septal) 10.7 MV Lateral e' Velocity 7.8 cm/s MV E/e' (Lateral) 10.0 MV e' Average 7.56 cm/s MV E/e' (Average) 10.3 Tricuspid Valve Name Value Normal TV Regurgitation Doppler TR Peak Velocity 200 cm/s Estimated PAP/RSVP RA Pressure 3 mmHg <=5 PA Systolic Pressure 19 mmHg <36 RV Systolic Pressure 19 mmHg <36 Aortic Valve Name Value Normal AV 2D/MM AV Cusp Sep (MM) 0.9 cm AV Doppler AV Peak Velocity 103 cm/s AV Mean Gradient 3 mmHg AV VTI 19 cm AV Area (Cont Eq VTI) 2.3 cm2 >=3.0 AV Area (Cont Eq Kris) 2.1 cm2 AV DI (Kris) 0.73 AV Regurgitation 2D LVOT Area 2.8 cm2 Ventricles Name Value Normal LV Dimensions 2D/MM IVS Diastolic Thickness (2D) 0.7 cm 0.6-0.9 LVID Diastole (2D) 4.2 cm 3.8-5.2 LVIW Diastolic Thickness (2D) 1.0 cm 0.6-0.9 LVID Systole (2D) 2.6 cm 2.2-3.5 LVOT Diameter 1.9 cm LV Mass (2D Cubed) 109.83 g 67.00-162.00 LV Mass Index (2D Cubed) 81 g/m2 43-95 Relative Wall Thickness (2D) 0.48 <=0.42 IVS/LVIW Diastolic Thickness (2D) 0.70 0.00-1.50 LV Fractional Shortening/Ejection Fraction 2D/MM LV Fractional Shortening (2D) 38 % 27-45 LV EF (2D Teichholz) 69 % Atria Name Value Normal LA Dimensions LA Volume (4C A-L) 15 ml LA Volume (BP A-L) 18 ml Left Ventricle Left ventricular chamber dimension is normal. Left ventricular systolic function is normal with visually estimated ejection fraction of 55-60%. There is concentric remodeling noted in the left ventricle. Left ventricular segmental wall motion is normal. There is normal diastolic function in the left ventricle. Right Ventricle Right ventricular chamber dimension is normal. Right ventricular systolic function is normal. Left Atrium Left atrial chamber dimension is normal. Right Atrium Right atrial chamber dimension is normal. Aortic Valve The aortic valve is trileaflet. There is no aortic valve sclerosis. There is no aortic valve stenosis with a peak velocity of 103 cm/s, mean gradient of 3 mmHg, and aortic valve area of 2.3 cm2. There is no aortic valve regurgitation. Pulmonic Valve The pulmonic valve is normal. There is no pulmonic valve stenosis. There is no pulmonic regurgitation. Mitral Valve The mitral valve has normal leaflets. There is no mitral valve stenosis. There is trace mitral valve regurgitation. Tricuspid Valve The tricuspid valve leaflets are normal. There is no tricuspid valve stenosis. There is trace tricuspid valve regurgitation. No pulmonary hypertension, estimated pulmonary arterial systolic pressure is 19 mmHg and systemic blood pressure of 121 mmHg in systole. Pericardium/Pleural The pericardium appears normal. There is no pericardial effusion. No pleural effusion visualized. Inferior Vena Cava Normal inferior vena cava with >50% collapse upon inspiration consistent with normal right atrial pressure, 3 mmHg. Aorta The aortic measurements are indexed to age and body surface area. The aortic root at the sinus of Valsalva is not well visualized. The prox ascending aorta is not well visualized. Summary 1. Left ventricle size is normal and systolic function is normal. Estimated ejection fraction is 55-60%. There is normal diastolic function. 2. Right ventricle chamber size is normal and systolic function is normal. Estimated RVSP is 19 mmHg. 3. There is trace tricuspid valve regurgitation. 4. There is trace mitral valve regurgitation. 5. Normal IVC with estimated RA pressure 3 mmHg. Report Signatures Finalized by Jules Smith on 02/12/2025 11:27 AM
--- NOTE | 2025-02-12 08:38 | PD.RESPRO ---
Documentation for date of: 02/12/25 Exam Vital Signs Temp Pulse Resp BP Pulse Ox O2 Del Method 97.7 F 64 21 H 121/99 H 97 Room Air 02/12/25 04:00 02/12/25 04:00 02/12/25 04:00 02/12/25 04:00 02/12/25 04:00 02/12/25 04:00 Objective Labs 02/12/25 02:51 02/12/25 02:51 Labs: Laboratory Results - last 24 hr 02/11/25 02/11/25 02/11/25 18:28 18:50 20:56 WBC 10.9 RBC 4.77 Hgb 14.4 Hct 42.4 MCV 89 MCH 30.2 MCHC 34.0 RDW Std Deviation 43.8 Plt Count 216 Neut % (Auto) 88 H Lymph % (Auto) 7 L Mayes % (Auto) 5 Eos % (Auto) 0 Baso % (Auto) 0 Neut # (Auto) 9.6 H Lymph # (Auto) 0.8 L Mayes # (Auto) 0.5 Eos # (Auto) 0.0 Baso # (Auto) 0.0 Immature Gran # (Auto) 0.05 H Absolute Nucleated RBC 0.00 Immature Gran % 1 H Nucleated RBC % 0 PT 10.5 INR 1.0 APTT 25.6 Puncture Site ABG pH ABG pCO2 ABG pO2 ABG HCO3 ABG O2 Saturation ABG Base Excess FiO2 Sodium 143 Potassium 4.1 Chloride 108 H Carbon Dioxide 23.0 Anion Gap 12 BUN 8 L Creatinine 0.9 Estim Creat Clear Calc 42.3 L eGFR > 60 BUN/Creatinine Ratio 9 L Glucose 127 H Calculated Osmolality 285 Lactic Acid 1.2 Calcium 9.8 Corrected Calcium 9.8 Phosphorus Magnesium 2.0 Total Bilirubin 0.5 AST 28 ALT 15 Alkaline Phosphatase 57 Ammonia < 10 L Troponin I 0.987 H* 1.296 H* D Total Protein 7.2 Albumin 4.6 Globulin 2.6 Albumin/Globulin Ratio 1.8 Triglycerides Cholesterol LDL Cholesterol, Calc HDL Cholesterol Cholesterol/HDL Ratio Amylase 81 Lipase 29 Ur Collection Type Urine Color Urine Clarity Urine pH Ur Specific [place] Urine Protein Urine Glucose (UA) Urine Ketones Urine Blood Urine Nitrite Urine Bilirubin Urine Urobilinogen (Auto) Ur Leukocyte Esterase Urine RBC Urine WBC Ur Squamous Epith Cells Urine Bacteria Ur Culture Indicated? Urine Opiates Screen Urine Fentanyl Screen Ur Barbiturates Screen U Amphetamin/Meth Scrn U Benzodiazepines Scrn U Cocaine Metab Screen U Marijuana (THC) Screen Ethyl Alcohol < 3.0 Blood Type O Positive Antibody Screen NEGATIVE Blood Bank Wristband ID Yes 02/11/25 02/11/25 02/12/25 21:16 21:54 02:51 WBC 9.0 RBC 4.30 Hgb 12.9 Hct 38.4 MCV 89 MCH 30.0 MCHC 33.6 RDW Std Deviation 44.1 Plt Count 173 D Neut % (Auto) 73 Lymph % (Auto) 18 Mayes % (Auto) 8 Eos % (Auto) 0 Baso % (Auto) 0 Neut # (Auto) 6.6 Lymph # (Auto) 1.6 [place]es # (Auto) 0.8 Eos # (Auto) 0.0 Baso # (Auto) 0.0 Immature Gran # (Auto) 0.02 H Absolute Nucleated RBC 0.00 Immature Gran % 0 Nucleated RBC % 0 PT INR APTT Puncture Site Right Radial ABG pH 7.40 ABG pCO2 30 L ABG pO2 84 ABG HCO3 19 L ABG O2 Saturation 97 ABG Base Excess -5 L FiO2 21 Sodium 143 Potassium 3.9 Chloride 111 H Carbon Dioxide 21.9 Anion Gap 10 BUN 9 Creatinine 0.8 Estim Creat Clear Calc 47.6 L eGFR > 60 BUN/Creatinine Ratio 11 L Glucose 148 H Calculated Osmolality 286 Lactic Acid Calcium 8.3 D Corrected Calcium 8.3 L D Phosphorus 4.2 Magnesium 2.1 Total Bilirubin 0.6 AST 28 ALT 12 Alkaline Phosphatase 46 Ammonia Troponin I 1.308 H* Total Protein 5.7 Albumin 4.0 D Globulin 1.7 L Albumin/Globulin Ratio 2.4 H Triglycerides 57 Cholesterol 171 LDL Cholesterol, Calc 86 HDL Cholesterol 74 H Cholesterol/HDL Ratio 2.3 L Amylase Lipase Ur Collection Type Clean Catch Urine Color Lt-Yellow Urine Clarity Clear Urine pH 6.0 Ur Specific [place] > 1.035 H Urine Protein 1+ A Urine Glucose (UA) Negative Urine Ketones 1+ A Urine Blood Trace Urine Nitrite Negative Urine Bilirubin Negative Urine Urobilinogen (Auto) Negative Ur Leukocyte Esterase Negative Urine RBC 4 H Urine WBC 1 Ur Squamous Epith Cells 1 Urine Bacteria None Ur Culture Indicated? Not Indicated Urine Opiates Screen Negative Urine Fentanyl Screen Negative Ur Barbiturates Screen Negative U Amphetamin/Meth Scrn Negative U Benzodiazepines Scrn Negative U Cocaine Metab Screen Negative U Marijuana (THC) Screen Positive A Ethyl Alcohol Blood Type Antibody Screen Blood Bank Wristband ID ABG Interpretation ABG results: 02/11/25 21:16 ABG pH 7.40 ABG pCO2 30 L ABG pO2 84 ABG HCO3 19 L ABG O2 Saturation 97 ABG Base Excess -5 L Quality Measures Quality Measures VTE prophylaxis Assessment & Plan Assessment Current Active Medications: Generic Name Dose Route Start Last Admin Trade Name Freq PRN Reason Stop Dose Admin Lactated Ringer's 1,000 mls @ 75 mls/hr 02/11/25 23:15 02/11/25 23:28 Lactated Ringers IV 03/13/25 23:14 75 mls/hr .[id number] VINEET Administration Morphine Sulfate 2 mg 02/11/25 23:19 Morphine Sulf Inj 4 Mg/Ml Vial IVP 02/16/25 23:18 X1 PRN chest pain Ondansetron HCl 4 mg 02/11/25 23:14 Ondansetron Inj 2 Mg/Ml Inj 2 Ml IVP 03/13/25 23:13 Q6H PRN NAUSEA OR VOMITING Protocol Pantoprazole Sodium 40 mg 02/12/25 09:00 Pantoprazole Inj 40 Mg Vial IVP 03/14/25 08:59 QDAY VINEET Sennosides 1 tab 02/11/25 23:14 Senna Tablet PO 03/13/25 23:13 QDAY PRN constipation Protocol
--- NOTE | 2025-02-12 08:41 | ESCONSULT_ITS ---
HPI Data of Consult Requesting Physician: Rossana Amador MD Admitting Provider: Rossana Amador MD Attending Provider: Rossana Amador MD Primary Care Provider: Jed Ham Consult Narrative History of present illness: A 64-year-old female with no significant past medical history presented with generalized weakness and an episode of severe hives. The patient described an incident the previous day at 7 PM while feeding her chickens. It was a rainy day with a bad weather, and she slipped on down the hill while walking. She denies any fall, loss of consciousness, or head trauma, stating that she slowly slipped. As a result, she was completely covered in mud. After returning home and taking a shower, she experienced stomach discomfort and began dry heaving. During this time, she also noted mild nasal bleeding, likely secondary to the dry heaving. Patient denies any chest pain, shortness of breath, palpitation, PND, unusual weight gain, lower extremity edema, dyspnea on exertion, or any other associated symptoms. Patient stated that overall she is in good health, following healthy diet and very active in her daily activities. Patient stated that she never does regularly follow any doctor because there is no need. The patient presented to the Emergency Department due to these symptoms. She also reported having a recent episode of stomach flu a couple of days prior but denied any associated gastrointestinal symptoms such as nausea, vomiting, hematemesis, melena, or other alarming features.In 2020 patient had a colonoscopy done which just revealed hemorrhoids, rectal polyp, biopsy was taken at that time which showed inflamed hyperplastic polyp, negative for microscopic colitis and dysplasia. The patient has a history of consuming two glasses of wine every night but denies smoking. She does, however, occasionally use marijuana. She denies any history of esophageal varices, cirrhosis, ascites, or gastrointestinal bleeding. ED Course Vitals: BP: 160/100 Respiratory rate: 18 O2 saturation: 96% on room air Temperature: 97.4?F Labs: CBC: Unremarkable, hemoglobin 14.4 CMP: BUN/creatinine ratio 11, glucose 148 Troponin: 1.296 HDL: 74 Imaging: Head CT: Negative for hemorrhage, mass, or midline shift Chest X-ray: Unremarkable CT Abdomen/Pelvis: Gastritis pattern EKG: Sinus rhythm with no ST changes, QTc 426 In the ED, the patient was treated with pantoprazole (twice daily), an octreotide drip, Zofran, metoclopramide, and 1 liter of normal saline. Past Medical HistoryNone Past Surgical History-colonoscopy which showed some polyps in 2020 Family History Mother had unspecified heart disease and was a smoker. Social History Consumes two glasses of wine nightly.Denies smoking but uses marijuana regularly. Worked as a schoolbus professional driver and retired now. Lives with her as well as son [id number]. Denies any kind of major surgeries cc:: cc: Rossana Amador MD Exam Vital Signs Temp Pulse Resp BP Pulse Ox O2 Del Method 97.7 F 64 21 H 121/99 H 97 Room Air 02/12/25 04:00 02/12/25 04:00 02/12/25 04:00 02/12/25 04:00 02/12/25 04:00 02/12/25 04:00 Narrative Exam GENERAL: no acute distress, AAO x3 HEENT: Head AT/ NC. Mucous membranes moist. PERRL. NECK: Supple, no lymphadenopathy, no carotid bruits. CARDIOVASCULAR: RRR. Normal S1/S2, No m/r/g. No pitting edema of bilateral LEs. RESPIRATORY: CTAB. No wheezing, rhonchi, crackles. GASTROINTESTINAL: Abdomen soft, non tender no palpable masses. Bowel sounds present in all 4 quadrants. MUSCULOSKELETAL:? No cyanosis or edema, no visible joint swelling. NEUROLOGICAL: CN II-XII grossly intact. No focal deficits. Sensation intact, symmetric. PSYCHIATRIC: Awake and alert, not agitated, normal mood and affect. INTEGUMENTARY: No obvious rashes, no jaundice, normal turgor. Results Labs 02/12/25 16:59 02/12/25 02:51 Labs: Short CBC 02/11/25 02/12/25 Range/Units 18:28 02:51 WBC 10.9 9.0 (3.6-11.0) Thou/mm3 Hgb 14.4 12.9 (12.0-16.0) g/dL Hct 42.4 38.4 (36.0-46.0) % Plt Count 216 173 D (140-440) Thou/mm3 BMP 02/11/25 02/12/25 18:28 02:51 Sodium 143 143 Potassium 4.1 3.9 Chloride 108 H 111 H Carbon Dioxide 23.0 21.9 BUN 8 L 9 Creatinine 0.9 0.8 Glucose 127 H 148 H Calcium 9.8 8.3 D Cardiac Enzymes 02/11/25 02/11/25 02/12/25 Range/Units 18:28 20:56 02:51 Troponin I 0.987 H* 1.296 H* D 1.308 H* (0.0-0.045) ng/mL Liver Function 02/11/25 02/12/25 Range/Units 18:28 02:51 Total Bilirubin 0.5 0.6 (0.3-1.2) mg/dL AST 28 28 (0-34) U/L ALT 15 12 (10-49) U/L Alkaline Phosphatase 57 46 (46-116) U/L Albumin 4.6 4.0 D (3.4-4.8) gm/dL Urine 02/11/25 Range/Units 21:54 Urine Color Lt-Yellow (Lt Yel-Yel) Urine Clarity Clear (Clear/Hazy) Urine pH 6.0 (5.0-7.0) Ur Specific Clare > 1.035 H (1.001-1.035) Urine Protein 1+ A (Neg - Trace) Urine Glucose (UA) Negative (Negative) ABG Interpretation ABG results: 02/11/25 21:16 ABG pH 7.40 ABG pCO2 30 L ABG pO2 84 ABG HCO3 19 L ABG O2 Saturation 97 ABG Base Excess -5 L Quality Measures Quality Measures VTE prophylaxis Advance care planning discussed with:: patient Medications Home Medications and Allergies Home Medications ?Medication ?Instructions ?Recorded ?Confirmed ?Type No Known Home Medications 02/12/2501/27 History Allergies Allergy/AdvReac Type Severity Reaction Status Date / Time No Known Allergies Allergy Verified 02/11/25 17:04 Visit Medications Lactated Ringer's (Lactated Ringers) 1,000 mls @ 75 mls/hr IV .[id number] VINEET Stop: 03/13/25 23:14 Last Admin: 02/11/25 23:28 Dose: 75 mls/hr Morphine Sulfate (Morphine Sulf Inj 4 Mg/Ml Vial) 2 mg IVP X1 PRN PRN Reason: chest pain Stop: 02/16/25 23:18 Ondansetron HCl (Ondansetron Inj 2 Mg/Ml Inj 2 Ml) 4 mg IVP Q6H PRN; Protocol PRN Reason: NAUSEA OR VOMITING Stop: 03/13/25 23:13 Pantoprazole Sodium (Pantoprazole Inj 40 Mg Vial) 40 mg IVP QDAY VINEET Stop: 03/14/25 08:59 Sennosides (Senna Tablet) 1 tab PO QDAY PRN; Protocol PRN Reason: constipation Stop: 03/13/25 23:13 Discontinued Medications Esomeprazole Magnesium (Esomeprazole Inj 40 Mg Vial) 80 mg IVP X1 ONE Stop: 02/11/25 18:16 Last Admin: 02/11/25 19:55 Dose: Not Given Sodium Chloride (Ns) 1,000 mls @ 999 mls/hr IV .Q1H1M ONE Stop: 02/11/25 19:15 Last Infusion: 02/11/25 21:21 Dose: Infused Octreotide Acetate 1,000 mcg/ (Sodium Chloride) 102 mls @ 5.1 mls/hr IV .Q20H ONE; Protocol Stop: 02/12/25 14:14 Last Infusion: 02/11/25 23:51 Dose: 0 mcg/hr, 0 mls/hr Metoclopramide HCl (Metoclopramide Inj 5 Mg/Ml Vial 2 Ml) 10 mg IVP X1 ONE Stop: 02/11/25 18:16 Last Admin: 02/11/25 20:10 Dose: 10 mg Ondansetron HCl (Ondansetron Inj 2 Mg/Ml Inj 2 Ml) 4 mg IVP Q1H PRN PRN Reason: PERSISTENT NAUSEA OR VOMITING Last Admin: 02/11/25 20:10 Dose: 4 mg Pantoprazole Sodium (Pantoprazole Inj 40 Mg Vial) 80 mg IVP X1 ONE Stop: 02/11/25 18:36 Last Admin: 02/11/25 20:09 Dose: 80 mg Assessment & Plan Plan 64-year-old female without significant past medical history was admitted for questionable hematemesis/GI workup. Noted to have elevated troponin, and cardiology was consulted for further workup. # NSTEMI/elevated troponins Most likely patient had a demand ischemia in the setting of stress/dry heaves/GI bleed and also elevated blood pressure Troponins peaked at 1.3 and are now downtrending. EKG without any acute ST-T changes suggestive of any ischemia. BNP within normal limit Patient denies any dyspnea on exertion, PND, chest pain, palpitation, or any other symptoms. Recommendations Keep in telemetry Given the history of elevated blood pressure, risk factors such as family history of heart disease, history of alcohol use, female, 64 years old, patient will need further evaluation to rule out any ischemic heart disease echocardiogram ordered for now to check LV function RV function as well as diastolic function and regional wall motion abnormalities. EF normal and no regional wall motion abnormalities then further workup can be pursued as outpatient as patient will need further GI workup given the questionable hematemesis and cannot give any anticoagulation or antiplatelets without the complete GI workup. Keep electrolytes within normal limits, potassium above 4, magnesium above 2 Aggressive risk factor control such as hypertension, hyperlipidemia and hyperglycemia Check TSH A1c as well as lipid profile for further cardiac risk stratification. #Hypertension On presentation noted new onset Continue monitor, Chronic elevated hypertension with her overall symptoms potentially increases her risk of cardiovascular events #Questionable hematemesis #Gastritis #Nasal bleeding # Frequent marijuana and alcohol use To be managed by primary team Patient care was discussed with attending physician Dr. Holly Ivory MD PGY-3 I have carefully reviewed this document. Due to imperfections in the voice software, there could be grammatical errors including phonetic/typographic errors. This in no way compromises the medical care the patient is receiving Attending Provider Attestation/Addendum I have personally seen and examined the patient separately on the above date of service and discussed the plan of care with the resident. I reviewed the resident Dr. Evelin Wahl consultation progress note and agree with the resident findings and plan in the note above and have also edited the documentation to reflect my findings and plan. Jules Smith M.D. Interventional Cardiology
[2025-02-12 09:22] LABS: Troponin I 0.664 ng/mL (0.0-0.045)
[2025-02-12] MEDS: CALCIUM CARBONATE 600 MG TABLET PO (09:30)
[2025-02-12] MEDS: RINGERS LACTATED 1000 ML 1,000 ML 75 ML IV (11:58)
[2025-02-12 15:59] LABS: Troponin I 0.535 ng/mL (0.0-0.045)
[2025-02-12 17:13] LABS: Basophils # (Auto) 0.0 Thou/mm3 (0.0-0.2); Basophils % (Auto) 0 % (0-2.5); Eosinophils # (Auto) 0.0 Thou/mm3 (0.0-0.5); Eosinophils % (Auto) 0 % (0-10); Hematocrit 37.9 % (36.0-46.0); Hemoglobin 12.9 g/dL (12.0-16.0); Immature Granulocytes Auto 0.01 Thou/mm3 (0.00-0.00); Lymphocytes # (Auto) 1.7 Thou/mm3 (1.0-4.8); Lymphocytes % (Auto) 20 % (10-50); Mean Corpuscular HGB Conc 34.0 g/dl (31.0-37.0); Mean Corpuscular Hemoglobin 30.3 pg (25.0-35.0); Mean Corpuscular Volume 89 fL (80-100); Monocytes # (Auto) 0.5 Thou/mm3 (0.0-0.8); Monocytes % (Auto) 6 % (0-12); Neutrophils # (Auto) 6.2 Thou/mm3 (1.8-7.7); Neutrophils % (Auto) 73 % (37-80); Nucleated Red Blood Cell # 0.00 Thou/mm3 (0.00-0.00); Nucleated Red Blood Cell % 0 /100 WBC (0); Platelet Count 168 Thou/mm3 (140-440); RDW Standard Deviation 44.6 fL (36.4-46.3); Red Blood Count 4.26 Miln/mm3 (4.00-5.20); White Blood Count 8.4 Thou/mm3 (3.6-11.0)
--- NOTE | 2025-02-12 17:40 | ESDS_ITS ---
Planned Discharge Date 02/12/25 DS: Providers Provider Date of admission: 02/11/25 23:14 Primary care physician: Jed Ham Admitting Provider: Rossana Amador MD Attending Provider on Admission: Rossana Amador MD Consults: 02/11/25 22:22 Consult to Cardiology Stat Comment: Consulting Provider: Jules Smith 02/12/25 16:44 Consult to Gastroenterology Routine Comment: dry heaving and concern for upper gi bleed Consulting Provider: Paramjit Lawrence Attending Provider on DC: Abelino Ramirez MD Discharging Provider: Abelino Ramirez MD DS: Diagnosis Problem List Completed Was Problem List Reviewed/Reconciled?: Yes Hospital Course Hospital Course Hospital course: Hospital Course Ms Carranza is a 64 year old woman with no significant PMH who presented to the ED following a ground level fall/slip outside during the rain while feeding her chickens. She states that she had experienced episodes of gi discomfort following a senior citizen function a few days ago which was associated with dry heaving. She presented to the ED with dry crusted blood noted in her nose. She states that she had a nose bleed today. there was some discussion during the patients hospitalization of whether patient had hematemisis or had expectorated blood from her nose bleed. Her head CT was negative for acute hemorrhage, mass effect or midline shift and CT face was negative for any facial fractures despite the echymoses noted under her bilateral eyes. Tropoinins were noted to be elevated and were trended, cardiology was consulted who recommended out patient workup with angiogram. Explosive Operator consulted requested she undergo GI workup given some concern for upper GI bleed. Pt denied any epigastric tenderness and hgb remained stable at 12.9. Patient stated that given that she had low suspician for upper gi bleed and that she was feeling well, that she wanted to go home. patient was advised that she would be leaving the hospital against medical advise. pt understood the risks and benefits of leaving AMA and she was encouraged to represent to the emergency department if her symptoms were to worsen, if she experienced uncontrolled bleeding lasting several minutes, or if she experienced new or worsenining chest pain, or if she had subsequent episodes of hematemesis. Patient stated that she had PCP follow up appointment tomorrow 02/12 and was instructed of the importance of following up with safety pin assembling machine operator outpatient to complete the work up for ACS given her elevated troponins. Pt signed AMA paperwork prepared by her nurse. Diagnoses Tropinin elevation c/f NSTEMI type II Epistaxis Elevated troponin w c/f ACS Protein calorie malnutrition AMA instructions - if you develop vomiting with blood please return to the emergency department, you may have a bleed in your esophagus or in your stomach - please follow up with a safety pin assembling machine operator, for work up of your elevated troponins and our concern for acute coronary syndrome. Please call to make an appointment as soon as possible, because the safety pin assembling machine operator recommends that you get an angiogram to examine the blood vessels in your heart. -Follow up with PCP within 1 week of discharge, if you do not have a primary care physician you can come see us at the [facility] by calling [phone] -Continue rest of medications as previously prescribed -Return to the ED or call EMS if symptoms return and/or worsen Plan discussed with my attending Dr. James Connor MD PGY1 Time Spent with Patient Time attestation: Total time spent providing and/or coordinating discharge services: Time spent: Greater than 30 minutes Exam Vital Signs Temp Pulse Resp BP Pulse Ox O2 Del Method 98.3 F 69 19 133/82 H 98 Room Air 02/12/25 16:00 02/12/25 16:00 02/12/25 16:00 02/12/25 16:00 02/12/25 16:00 02/12/25 16:00 Narrative Exam General: frail (BMI 18) AOx3, no acute distress, able to speak full sentences, Egyptian speaking HEENT: NC/AT, bilateral bruises noted under eyes, mucous membranes dry, bilateral sclera anicteric Cardiovascular: regular rate and rhythm, S1/S2 present, no murmurs appreciated Pulmonary: clear to auscultation bilaterally, no rales/rhonchi/wheezes Abdominal: soft, non-tender, non-distended, no rebound/guarding, normal bowel sounds present Musculoskeletal: normal ROM, no peripheral edema Skin: warm and dry, intact, no rashes, Neuro: CN II-XII intact, no focal deficits Discharge Plan Plan Patient Disposition: Left Against Medical Advice Care Plan Goals: - if you develop vomiting with blood please return to the emergency department, you may have a bleed in your esophagus or in your stomach - please follow up with a safety pin assembling machine operator, for work up of your elevated troponins and our concern for acute coronary syndrome. Please call to make an appointment as soon as possible, because the safety pin assembling machine operator recommends that you get an angiogram to examine the blood vessels in your heart. -Follow up with PCP within 1 week of discharge, if you do not have a primary care physician you can come see us at the [facility] by calling [phone] -Continue rest of medications as previously prescribed -Return to the ED or call EMS if symptoms return and/or worsen Prescriptions/Referrals Prescriptions/Med Rec: No Action No Known Home Medications Referrals: Jed Ham [Primary Care Provider] Patient/Caregiver Discharge Instructions Print Language: Egyptian Quality Discharge Quality Measures none
--- NOTE | 2025-02-12 18:06 | PC.NURSE ---
Jacoby YA. Doctor. Anand came to speak to patient.
--- NOTE | 2025-02-12 18:12 | ESCONSULT_ITS ---
HPI Data of Consult Requesting Physician: Rossana Amador MD Primary Care Provider: Jed Ham Consult Narrative Reason for consult: Epistaxis hematemesis History of present illness: 64 years old female comes in for evaluation to the emergency room because she had a ground-level fall at the back of her head Then also had epistaxis as well as hematemesis Troponin 1 was elevated at 1.296 which has come down to 0.535 CT scan of the abdomen pelvis with contrast showed gastritis pattern no gallstones cc:: cc: Rossana Amador MD Review of Systems Review of Systems Systems Reviewed: All systems reviewed, normal except as documented Meds Home Medications and Allergies Home Medications ?Medication ?Instructions ?Recorded ?Confirmed ?Type No Known Home Medications 02/12/2501/27 History Allergies Allergy/AdvReac Type Severity Reaction Status Date / Time No Known Allergies Allergy Verified 02/11/25 17:04 Exam Vital Signs Temp Pulse Resp BP Pulse Ox O2 Del Method 98.4 F 80 20 155/86 H 97 Room Air 02/12/25 18:09 02/12/25 18:09 02/12/25 18:09 02/12/25 18:09 02/12/25 18:09 02/12/25 18:09 Constitutional Comments: Alert oriented Routine Respiratory Exam Comments: Normal to auscultation Routine Abdominal Exam Comments: Soft nontender Results Labs 02/12/25 16:59 02/12/25 02:51 Labs: Short CBC 02/11/25 02/12/25 02/12/25 Range/Units 18:28 02:51 16:59 WBC 10.9 9.0 8.4 (3.6-11.0) Thou/mm3 Hgb 14.4 12.9 12.9 (12.0-16.0) g/dL Hct 42.4 38.4 37.9 (36.0-46.0) % Plt Count 216 173 D 168 (140-440) Thou/mm3 BMP 02/11/25 02/12/25 18:28 02:51 Sodium 143 143 Potassium 4.1 3.9 Chloride 108 H 111 H Carbon Dioxide 23.0 21.9 BUN 8 L 9 Creatinine 0.9 0.8 Glucose 127 H 148 H Calcium 9.8 8.3 D Cardiac Enzymes 02/11/25 02/11/2502/12/25 Range/Units 18:28 20:56 02:51 Troponin I 0.987 H* 1.296 H* D 1.308 H* (0.0-0.045) ng/mL 02/12/25 02/12/25 Range/Units 08:42 14:42 Troponin I 0.664 H* D 0.535 H* (0.0-0.045) ng/mL Liver Function 02/11/25 02/12/25 Range/Units 18:28 02:51 Total Bilirubin 0.5 0.6 (0.3-1.2) mg/dL AST 28 28 (0-34) U/L ALT 15 12 (10-49) U/L Alkaline Phosphatase 57 46 (46-116) U/L Albumin 4.6 4.0 D (3.4-4.8) gm/dL Urine 02/11/25 Range/Units 21:54 Urine Color Lt-Yellow (Lt Yel-Yel) Urine Clarity Clear (Clear/Hazy) Urine pH 6.0 (5.0-7.0) Ur Specific Foreman > 1.035 H (1.001-1.035) Urine Protein 1+ A (Neg - Trace) Urine Glucose (UA) Negative (Negative) ABG Interpretation ABG results: 02/11/25 21:16 ABG pH 7.40 ABG pCO2 30 L ABG pO2 84 ABG HCO3 19 L ABG O2 Saturation 97 ABG Base Excess -5 L Assessment and Plan Additional Assessment & Plan Additional Plan: # Hematemesis it could be due to the epistaxis the patient so the bladder could peptic ulcer disease Yoko-Robison tear gastritis esophagitis Plan N.p.o. midnight tonight Consent obtained for fiberoptic esophagogastroduodenoscopy with possible biopsy possible therapeutic intervention under intravenous moderate sedation scheduled for tomorrow Will follow the patient Serial CBC Other medical problems include Elevated troponin trending downwards cardiology on board Thank you very much for the opportunity to participate in the care of this patient
--- NOTE | 2025-02-12 19:25 | PD.EVENT ---
Documentation for date of: 02/12/25 Event Note Event Note: Patient signed out AGAINST MEDICAL ADVICE procedure canceled
== END 2025-02-12 18:07 | disposition left against medical advice (07) | DRG 377 ==
LOC: SERX 23:17 → SERHOLD 23:26 → S2NX 23:58
PROVIDERS: Admitting Provider Student in an Organized Health Care Education/Training Program; Emergency Provider Emergency Medicine; PCP Internal Medicine; Visit Provider Student in an Organized Health Care Education/Training Program
DX: K92.0 Hematemesis (principal); I21.A1 Myocardial infarction type 2; E46 Unspecified protein-calorie malnutrition; K29.70 Gastritis, unspecified, without bleeding; I10 Essential (primary) hypertension; R04.0 Epistaxis; S00.11XA Contusion of right eyelid and periocular area, initial encounter; W01.0XXA Fall on same level from slipping, tripping and stumbling without subsequent striking against object, initial encounter; Y93.01 Activity, walking, marching and hiking; K52.9 Noninfective gastroenteritis and colitis, unspecified; S00.12XA Contusion of left eyelid and periocular area, initial encounter; Z53.29 Procedure and treatment not carried out because of patient's decision for other reasons
CPT/HCPCS: 36415; 36600; 70450; 70486; 71045; 74177; 80053; 80061; 80307; 80320; 81001; 82140; 82150; 82803; 83605; 83690; 83735; 84100; 84484; 85025; 85610; 85730; 86850; 86900; 86901; 93005; 93306; 96361; 96365; 96366; 96375; 96376; 99284; A4649; J2354; J2405; J2470; J2765; J7030; J7050; J7120; Q9967; A9270; G0480